=== PATIENT | female | born 1995 | race Caucasian/White ===

== ENCOUNTER 2024-02-13 09:24 | Day surgery (SDC) | payer OTHER ==
[2024-02-13 10:06] LABS: HCG SERUM TEST NEGATIVE (NEGATIVE)
--- NOTE | 2024-02-13 11:26 | HP ---
HISTORY OF PRESENT ILLNESS: Patient has had history of substernal heartburn, pain with swallowing, odynophagia, not much help with PPIs, worse with eating, some dysphagia upper esophagus, feels like food getting stuck upper esophagus, with pain in lower esophagus, substernal area. Family history negative for esophageal cancer. PAST MEDICAL HISTORY: Depression, asthma. HOME MEDICATIONS: Effexor XR. ALLERGIES: No known drug allergies. PAST SURGICAL HISTORY: Tonsillectomy, adenoidectomy. SOCIAL HISTORY: No smoking or alcohol abuse. FAMILY HISTORY: Negative with regard to this problem. REVIEW OF SYSTEMS: Twelve systems reviewed. The patient did have a negative cardiac workup recently she said. No chest pain or palpitations. Other systems negative or noncontributory as above and per preadmission questionnaire. PHYSICAL EXAMINATION: GENERAL: Height 5 feet. BMI 28.12. No acute distress. HEENT: Sclerae nonicteric. Extraocular movements intact. NECK: No JVD. CHEST: Clear. Equal excursion, nonlabored breathing. CARDIOVASCULAR: Regular rate and rhythm. ABDOMEN: Soft. SKIN: Dry. EXTREMITIES: No cyanosis or edema. NEUROLOGIC: Alert and oriented. Moving extremities symmetrically. PSYCHIATRIC: Appropriate mood and affect. IMPRESSION: Dysphagia, odynophagia. Needs EGD to evaluate for esophagitis, gastritis, peptic ulcer disease, other etiologies. Risks include infection; risk of bowel injury or perforation possibly requiring open procedure or transfer for stent placement; possibility of no improvement in swallowing; possible need for other procedures, dilators or referrals; risk of possible no narrowing to dilate; possible neurologic or functional problem or dilatation without benefit; dilatation performed to improve swallowing might need to be repeated again down the road; all of the above but not limited to. Otherwise, continue medication for anxiety and depression.
[2024-02-13] MEDS ORDERED: Xylocaine-Mpf 2% 5 Ml Vial ONE (11:52)
[2024-02-13] MEDS ORDERED: Versed 2 MG/2 ML Injection ONE (11:52)
[2024-02-13] MEDS ORDERED: DIPRIVAN 200 MG/20 ML IV ONE ×2 (11:52→12:10)
[2024-02-13 12:43] VITALS: RESP 16
[2024-02-13 12:48] VITALS: BP 99/68; PULSE 64; TEMP 98; O2SAT 97
--- NOTE | 2024-02-14 11:57 | OP ---
SURGERY DATE/TIME: 02/13/2024 [id number] PREOPERATIVE DIAGNOSIS: History of odynophagia, history of dysphagia in the upper esophagus. POSTOPERATIVE DIAGNOSES: 1) Mild gastric erythema, biopsy pending to evaluate for Helicobacter pylori. 2) Slight erythema distal esophagus without evidence of erosions, without evidence of any Whitaker's esophagus. 3) Proximal esophageal narrowing and spasm without any obvious lesion to biopsy. PROCEDURES: 1) Esophagogastroduodenoscopy; cold biopsy of the antrum for Helicobacter pylori; cold biopsy distal esophagus to evaluate for some early inflammation; cold biopsy mid to proximal esophagus to evaluate for eosinophilic esophagitis. 2) Cold biopsy of mid to proximal esophagus to evaluate for eosinophilic esophagitis. 3) Proximal esophageal dilatation (size 20 balloon). SURGEON: Lincoln Perez MD. ANESTHESIA: MAC. ESTIMATED BLOOD LOSS: Minimal. INDICATIONS: Consent was obtained. DESCRIPTION OF PROCEDURE AND FINDINGS: The patient was taken to the operative room. MAC anesthesia was induced after official time-out and no disagreement with planned procedure. The patient was well rested, anxious but sedation was accomplished per Anesthesia. Please see the note. Bite block positioned after official time-out and no disagreement with planned procedure. Videogastroscope passed down the proximal esophagus. There was a little bit of esophageal spasm and narrowing in the proximal esophagus. There was no obvious evidence of any mass or lesion to biopsy in this area. Because of her symptoms, felt this warranted a trial of dilatation at the end of the procedure. The scope was able to be passed down through the patent pylorus to the junction of the third and fourth portions of duodenum. Duodenum was grossly unremarkable. Back in the stomach, had some mild gastric erythema. Cold biopsy was taken to evaluate for H pylori and on retroflex there was no evidence of any hiatal hernia. GE junction was tight against the scope. Scope was straightened, pulled back to GE junction. It was about 38 cm. Z line was fairly crisp. There is just slight erythema on the esophageal side but no signs of any obvious mass, erosions, no signs of any Whitaker's. Cold biopsy was taken off esophageal side. Good hemostasis was noted. Otherwise the scope was pulled up to the esophagus. No signs of any erosion. No signs of any macroscopic inflammation. No clinical signs of reflux. Cold biopsy was taken at the mid to proximal esophagus to evaluate for eosinophilic esophagitis to evaluate for other causes of her symptoms. Otherwise, the proximal esophagus had a narrower area. It was felt she would benefit from dilating this. There were no signs of any obvious lesion or mass to biopsy. Scope was passed back down to the esophagus, then back into the stomach. The 20 balloon catheter was carefully inserted and then pulled back up to the proximal esophageal area and was carefully inflated, first stage for 30 seconds, second stage for 30 seconds, final stage size 20 balloon dilated for 1-1/2 minutes. It was then decompressed and removed. The scope much more easily passed through this area back into the stomach. It was carefully withdrawn. Good hemostasis was noted at the biopsy site. There was no evidence of any full-thickness issues at the dilatation site. Scope was withdrawn. The patient tolerated the procedure well. Findings discussed with her mother out in the waiting area.
== END 2024-02-13 12:53 | disposition home or self-care (01) ==
LOC: SDC 09:24
PROVIDERS: ATTEND Surgery
DX: K29.70 Gastritis, unspecified, without bleeding (principal); R13.10 Dysphagia, unspecified; K22.2 Esophageal obstruction
CPT/HCPCS: 36415; 84703; C1726; J2250; J2704